=== PATIENT | female | born 1955 | race Caucasian/White ===

== ENCOUNTER → 2023-11-23 15:39 | Outpatient (REF) | payer BC, SELFPAY | LOC: HWRCS 15:39 | PROVIDERS: ATTENDING PHYSICIAN Family Medicine | DX: R01.1 Cardiac murmur, unspecified (principal); R53.83 Other fatigue | CPT/HCPCS: 93306 ==

== ENCOUNTER → 2023-12-11 12:52 | Outpatient (REF) | payer BC, SELFPAY | LOC: HWWDC 12:52 | PROVIDERS: ATTENDING PHYSICIAN Family Medicine | DX: Z12.31 Encounter for screening mammogram for malignant neoplasm of breast (principal) | CPT/HCPCS: 77063; 77067 ==

== ENCOUNTER 2023-12-13 06:44 | Day surgery (SDC) | payer BC, SELFPAY ==
[2023-12-13 07:38] VITALS: BMI 24.2
== END 2023-12-13 10:13 | disposition home or self-care (01) ==
LOC: CATH 06:44
PROVIDERS: ATTENDING PHYSICIAN Internal Medicine Cardiovascular Disease; FAMILY PHYSICIAN Family Medicine; OTHER PHYSICIAN Internal Medicine Cardiovascular Disease
DX: I08.3 Combined rheumatic disorders of mitral, aortic and tricuspid valves (principal); R00.2 Palpitations; R06.02 Shortness of breath; I10 Essential (primary) hypertension; E78.2 Mixed hyperlipidemia; R73.9 Hyperglycemia, unspecified; Z79.82 Long term (current) use of aspirin
CPT/HCPCS: 93312; 93320; 93325

== ENCOUNTER 2023-12-19 10:21 | Day surgery (SDC) | payer BC, SELFPAY ==
[2023-12-19] VITALS (9 sets, daily range): BP systolic 117–150; BP diastolic 68–91; BMI 24.5
--- NOTE | 2023-12-19 08:58 | ITS.CL.CATH ---
[facility] - Catheterization
Cardiac Catheterization
Procedure Report:
LEFT AND RIGHT HEART CATHETERIZATION
Date of Procedure: December 19, 2023
Referring: Jacky Benitez
PROCEDURES:
1. Left heart catheterization, coronary angiogram.
2. Right heart catheterization.
3. Ultrasound-guided access
INDICATION: Ms Rodriguez is a 68-year-old female with past medical history of hyperlipidemia, hypertension and severe mitral regurgitation found on recent PJ in the setting of progressive dyspnea on exertion now being referred for a left and right
heart catheterization to help with preoperative planning. 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
severe mitral regurgitation with evidence of systolic flow reversal in the pulmonary veins.
ACCESS:
1. Right radial artery, 5 [place] sheath, under ultrasound guidance.
2. Right common femoral vein, 6 [place] sheath, under ultrasound guidance using a micropuncture kit. Attempt was made to pursue right brachial venous access however this was unsuccessful.
HEMODYNAMICS : (mmHg)
RA (m) : 5
RV (s/d,m) : 26/3, 8
PA (s/d, m) : 25/12, 17
PCWP (m) : 13
PA saturation: 70% on room air
AO saturation: 95.9% on room air
RA saturation: 66% on room air
Cardiac Output : 3.4 L/min
Cardiac Index : 1.9 L/min/m-2
Systemic vascular resistance: 2114 dsc^(-5)
Pulmonary vascular resistance: 2.38 zuniga unit
Heart rate: 70 bpm
AO (s/d) : 136/70
LV (s/d) : 138/4
LVEDP : 16
CORONARY FINDINGS
DOMINANCE: Right
LEFT MAIN: The left main artery is a large-caliber vessel which gives rise to the left anterior descending artery and the left circumflex artery. There is an eccentric 10 to 20% ostial left main stenosis.
LEFT ANTERIOR DESCENDING: [Left anterior descending artery is a large-caliber vessel which gives rise to 1 major diagonal branch. There is mild to moderate degree of tortuosity. Minimal luminal irregularities are present.
CIRCUMFLEX: The left circumflex artery is a medium caliber vessel which gives rise to 2 major obtuse marginal branch. There is minimal luminal irregularities.
RIGHT CORONARY ARTERY: The right coronary artery is a large-caliber, dominant vessel which gives rise to the right posterior descending artery and the right posterolateral system. Angiographically normal vessel.
SEDATION: 46 minutes of procedural sedation was utilized. An independent medical scientific liaison was present to assist with and help manage the patient's level of consciousness and physiologic status.
RADIATION SUMMARY: Fluoro Time (min): 4.5, Dose (mGy): 196.3, DAP (Gy.cm2) : 16.45
Closure Device:
1. Vascular band was placed over the right radial artery, 11 cc of air.
2. Manual pressure was held over the common femoral venous access site with successful hemostasis.
CONCLUSIONS
1. Nonobstructive coronary artery disease.
2. Normal right and left-sided filling pressures with borderline low cardiac output with elevated systemic vascular resistance
RECOMMENDATIONS
1. Optimization of cardiovascular risk factors and better blood pressure control in the setting of elevated systemic vascular resistance and severe mitral regurgitation.
2. Patient is scheduled to see Dr. Luis Antonio Crow from CT surgery for evaluation for mitral valve surgery.
Copy to: Luis Antonio Guthrie
Ranjana Ocampo MD, [facility], [facility]
[2023-12-19] MEDS: NSS 203 ML IV (11:01)
[2023-12-19] MEDS: LOW STRENGTH ASPIRIN 81 MG PO (11:02)
[2023-12-19 11:10] LABS: Hematocrit 40.2 % (37.0-47.0); Hemoglobin 14.1 g/dL (12.0-16.0); Mean Corp Hgb Conc. 35.1 g/dL (33.0-37.0); Mean Corpuscular Hgb 31.2 pg (27.0-31.0); Mean Corpuscular Volume 88.9 fL (81.0-99.0); Mean Platelet Volume 9.9 fL (7.4-10.4); Platelet Count 241 10^3/uL (130-400); Red Blood Cell Count 4.52 10^6/uL (4.20-5.40); Red Cell Dist. Width 12.3 % (11.5-14.5); White Blood Cell Count 4.7 10^3/uL (4.8-10.8)
[2023-12-19 11:30] LABS: Blood Urea Nitrogen 19 mg/dl (7-17); Calcium 9.5 mg/dl (8.4-10.2); Carbon Dioxide 23 mmol/L (22-30); Chloride 106 mmol/L (98-107); Estimated Creatinine Clearance 85 ml/min; Glucose 96 mg/dl (70-99); Potassium 3.8 mmol/L (3.5-5.1); Sodium 136 mmol/L (135-145); eGFR > 60.00
[2023-12-19] MEDS: NSS 1000 IV (13:06)
[2023-12-19] MEDS: TYLENOL 650 MG PO (15:00)
== END 2023-12-19 16:00 | disposition home or self-care (01) ==
LOC: CATH 10:21
PROVIDERS: ATTENDING PHYSICIAN Internal Medicine Interventional Cardiology; FAMILY PHYSICIAN Family Medicine; OTHER PHYSICIAN Internal Medicine Cardiovascular Disease
DX: I34.0 Nonrheumatic mitral (valve) insufficiency (principal); E78.5 Hyperlipidemia, unspecified; I11.0 Hypertensive heart disease with heart failure; I25.10 Atherosclerotic heart disease of native coronary artery without angina pectoris; I10 Essential (primary) hypertension; R06.09 Other forms of dyspnea
CPT/HCPCS: 99152; 99153; 76937; 80048; 85027; 93460; C1769; C1894; Q9967

== ENCOUNTER → 2024-01-03 07:56 | Outpatient (REF) | payer BC, SELFPAY | LOC: RAD 07:56 | PROVIDERS: ATTENDING PHYSICIAN Nurse Practitioner Acute Care; FAMILY PHYSICIAN Family Medicine | DX: I34.0 Nonrheumatic mitral (valve) insufficiency (principal); I34.1 Nonrheumatic mitral (valve) prolapse | CPT/HCPCS: 71275; 74174; Q9967 ==

== ENCOUNTER 2024-05-13 08:52 | Outpatient (RCR) | payer BC, SELFPAY | END 2024-05-13 23:59 | disposition home or self-care (01) | LOC: CRHB 08:52 | PROVIDERS: ATTENDING PHYSICIAN Internal Medicine | DX: Z95.4 Presence of other heart-valve replacement (principal) | CPT/HCPCS: 93797; 93798 ==

== ENCOUNTER 2024-06-12 08:39 | Outpatient (RCR) | payer BC, SELFPAY | END 2024-06-12 23:59 | disposition home or self-care (01) | LOC: CRHB 08:39 | PROVIDERS: ATTENDING PHYSICIAN Internal Medicine | DX: Z95.4 Presence of other heart-valve replacement (principal) | CPT/HCPCS: 93797; 93798 ==

== ENCOUNTER 2024-07-10 11:00 | Outpatient (RCR) | payer BC, SELFPAY | END 2024-07-10 15:38 | disposition home or self-care (01) | LOC: CRHB 11:00 | PROVIDERS: ATTENDING PHYSICIAN Internal Medicine | DX: Z95.4 Presence of other heart-valve replacement (principal) | CPT/HCPCS: 93797; 93798 ==

== ENCOUNTER → 2025-05-25 14:36 | Outpatient (REF) | payer OTHER, SELFPAY | LOC: RCS 14:36 | PROVIDERS: ATTENDING PHYSICIAN Internal Medicine Cardiovascular Disease; FAMILY PHYSICIAN Family Medicine | DX: I05.9 Rheumatic mitral valve disease, unspecified (principal) | CPT/HCPCS: 93306 ==